=== PATIENT | male | born 1945 | race Caucasian/White ===

== ENCOUNTER 2017-07-17 16:16 | Emergency (ER) | payer MEDICARE ==
[~2017-07-17] VITALS: Ht 175.3 cm; Wt 113.6 kg
[~2017-07-17 16:16] MED LIST: ALBU18HF IH; ALLO300T29 PO; AMLO10TA5 PO; APRES50 PO; CLON0.1T14 PO; COZ100 PO; FURO20TA PO; INSU100I15 SQ; KCL 10 MEQ PO; LOVA40TA PO; METO100T PO; ONDA4TAB48 PO; OXY5 PO; POLY1PAC PO; PROT40T PO; TAM4 PO; TEMA15CA PO; WARF4TAB2 PO
[2017-07-17 16:45] VITALS: BP 133/67; PULSE 59; RESP 16; O2SAT 95
[2017-07-17 18:00] VITALS: BP 150/62; PULSE 56; RESP 18; O2SAT 96
--- NOTE | 2017-07-17 18:06 | ED.REPORT ---
HPI-General Illness Date of Service Jul 17, 2017 ED Provider: Chaka Martinez DO Pt is a 72 year old male well-known to me with a history of HTN, CHF, A. fib, and DM who presents to the ED complaining of intermittent lightheadedness onset around breakfast time today and later at 1300 today. He c/o associated diaphoresis, lower abdominal pain, weakness, neck pain, diarrhea, and vision change. His family reports that the pt was shaking during his episodes. He denies chest pain, SOB, and headache. The pt reports that he has had two episodes of lightheadedness with the first episode resolved within 30 minutes after resting. It started shortly after taking his morning dose of insulin with a blood sugar of 177. He took his blood sugar 30 minutes later after his symptoms had started in his blood sugar was 135. Per pt, his second episode which also occurred after taking his lunchtime insulin lasted longer than the first episode of lightheadedness. He thought that it could be his heart and so he took a nitroglycerin, which she has never tried before and shortly afterwards he experienced a syncopal episode. His blood pressure was reported at 70/35 after taking his nitroglycerin . The pt states that his symptoms are currently resolved. Nursing Notes Stated Complaint: LIGHT HEADED, DIZZY, CHANGE IN VISION, NECK PAIN Chief Complaint: General Complaint Nursing Notes Reviewed: Yes Allergies: Coded Allergies: codeine (Verified Allergy, Unknown, 06/17/15) Scheduled ([kcl 10 meq]) 1 PO every morning take only while taking furosemide Allopurinol-Expunged Drug, Do Not Renew! (Allopurinol-Expunged Drug, Do Not Renew!) 300 Mg Tablet 300 MG PO DAILY AmLODIPine-Expunged Drug, Do Not Renew! (AmLODIPine-Expunged Drug, Do Not Renew! ) 10 Mg Tablet 10 MG PO AM Clonidine-Expunged Drug, Do Not Renew! (Clonidine-Expunged Drug, Do Not Renew!) 0.1 Mg Tablet 0.1 MG PO BID Furosemide-Expunged Drug, Do Not Renew! (Furosemide-Expunged Drug, Do Not Renew! ) 20 Mg Tablet 80 MG PO BID Insulin Npl/Lispro-Expunged Drug, Do Not Sherman (Humalog 40-77-Uvfapkef Drug, Do Not Renew!) 100 Unit/1 Ml Insuln.pen 48 UNIT SQ with breakfast Insulin Npl/Lispro-Expunged Drug, Do Not Sherman (Humalog 72-72-Bzbcicmu Drug, Do Not Renew!) 100 Unit/1 Ml Insuln.pen 48 UNIT SQ with dinner Losartan-Expunged Drug, Do Not Renew! (Losartan-Expunged Drug, Do Not Renew!) 100 Mg Tablet 100 MG PO DAILY Lovastatin-Expunged Drug, Do Not Renew! (Lovastatin-Expunged Drug, Do Not Renew! ) 40 Mg Tablet 40 MG PO HS Metoprolol Tart-Expunged Drug, Do Not Renew! (Metoprolol Tart-Expunged Drug, Do Not Renew!) 100 Mg Tablet 50 MG PO BID Nitrofurantoin Monohyd/M-Cryst (MacroBid) 100 Mg Capsule 100 MG PO BID PEG 3350-Expunged Drug, Do Not Renew! (MIRALAX-Expunged Drug, Do Not Renew!) 17 Gm/Pkt Packet 17 GM PO AM Pantoprazole-Expunged Drug, Do Not Renew! (Protonix-Expunged Drug, Do Not Renew! ) 40 Mg Tablet.dr 40 MG PO 0730 40 MG Tamsulosin-Expunged Drug, Do Not Renew! (Flomax-Expunged Drug, Do Not Renew!) 0.4 Mg Capsule 0.4 MG PO DAILY Warfarin Sodium Inactive Drug Do Not Use (Coumadin Inactive Drug Do Not Use) 4 Mg Tablet 7.5 MG PO PM hyDRALazine-Expunged Drug, Do Not Renew! (hyDRALazine-Expunged Drug, Do Not Renew!) 50 Mg Tab 50 MG PO BID Scheduled PRN Albuterol-Expunged Drug, Do Not Renew! (Albuterol-Expunged Drug, Do Not Renew!) 18 Gm Hfa.aer.ad 60 PUFF IH QIDP PRN PRN Ondansetron (Zofran) 4 Mg Tab.rapdis 4 MG PO PRN Temazepam-Expunged Drug, Do Not Renew! (Temazepam-Expunged Drug, Do Not Renew!) 15 Mg Capsule 15 MG PO HS PRN PRN oxyCODONE-Expunged, Do Not Renew! (oxyCODONE-Expunged, Do Not Renew!) 5 Mg Tablet 5-10 MG PO Q4HP PRN PRN General Time Seen by MD: 18:03 Chief Complaint Other (lightheadedness) Hx Obtained From: Patient, Spouse Arrived By: Walk-in Onset Occurred: 5 - 8 hours ago Symptom Duration: Intermittent Radiation: : Does not radiate Severity: Current: No pain currently Severity: Maximum: Moderate Recent Healthcare: No recent doctor visit, No recent hospitalization Similar Sx Previous: No Past Medical History Past Medical History left eye cataracts heart catheterization arthritis Reports: Diabetes mellitus, Hypertension Reports: Atrial fibrillation Past Surgical History cardiac catheterization Reports: Appendectomy Smoking History Former Smoker Social History Alcohol Use: In recovery Drug Use: Denies drug use Other Social History: Good social support, Ambulatory Status Independent Review of Systems + pelvic pain Full Review of Systems Constitutional: Reports: Weakness - generalized Respiratory: Denies: Shortness of breath Cardiovascular: Denies: Chest pain GI: Reports: Diarrhea Musculoskeletal: Reports: Neck pain Skin: Reports Diaphoresis Neurologic: Reports: Change LOC, Lightheaded, Shaking, Syncope, Vision change, Denies: Headache Complete sys rev & neg: except as marked. Physical Exam Vital Signs Vital Signs Date Time Temp Pulse Resp B/P Pulse Ox O2 Delivery O2 Flow Rate FiO2 07/17/17 21:43 36.7 67 129/62 95 Room Air 07/17/17 19:05 57 147/73 07/17/17 19:03 60 149/70 07/17/17 18:58 55 151/65 07/17/17 18:00 56 18 150/62 96 Room Air 07/17/17 16:45 36.6 59 16 133/67 95 Room Air Initial VS: Reviewed Head / Eyes: Atraumatic, Normocephalic ENT: Mucous membranes moist Neck: Supple, Full range of motion Respiratory: Breath sounds normal, Clear to auscultation, No respiratory distress Abdomen / GI: Soft, Non-tender Extremities: Vascular intact, Neuro intact Skin: Warm, Dry, No cyanosis Neurologic: Alert, Oriented, Nonfocal Psychiatric: Mood/affect normal, Behavior normal General/Constitutional: Awake, Alert Cardiovascular: Regular rhythm, Heart sounds NL, No murmurs Heart Rate / Rhythm: Positive: Bradycardia (with a rate around 50) No lower extremity edema Interpretation & Diagnostics Lab Results Interpretation Result Diagram: 07/17/17191807/17/171918 Test 07/17/17 19:19 07/17/17 19:22 White Blood Count 15.9th/mm3 (3.8-10.1) Red Blood Count 4.89mil/mm3 (4.40-5.80) Hemoglobin 14.8g/dL (13.8-17.2) Hematocrit 44.9% (41.0-50.0) Mean Corpuscular Volume 91.8fL (81-100) Mean Corpuscular Hemoglobin 30.3pg (27.0-35.0) Mean Corpuscular Hemoglobin Concent 33.0% (32.0-37.0) Red Cell Distribution Width 14.3% (12.3-15.4) Platelet Count 276bil/L (150-400) Neutrophils (%) (Auto) 78.6% (40-74) Lymphocytes (%) (Auto) 12.6% (14-46) Monocytes (%) (Auto) 7.8% (4-12) Eosinophils (%) (Auto) 0.4% (0-5) Basophils (%) (Auto) 0.3% (0-3) Sodium Level 142mEq/L (134-144) Potassium Level 4.4mEq/L (3.5-5.2) Chloride Level 103mEq/L (97-108) Carbon Dioxide Level 23mmol/L (18-29) Blood Urea Nitrogen 26mg/dL (8-27) Creatinine 1.44mg/dL (0.76-1.27) Estimat Glomerular Filtration Rate 51mL/min (>59) Glucose Level 142mg/dL (60-99) Calcium Level 9.4mg/dL (8.5-10.1) Magnesium Level 2.2mg/dL (1.6-2.6) Total Bilirubin 0.4mg/dL (0.0-1.2) Aspartate Amino Transf (AST/SGOT) 11U/L (0-50) Alanine Aminotransferase (ALT/SGPT) 27U/L (0-44) Alkaline Phosphatase 78U/L (25-160) Troponin T < 0.010ug/L (0.0-0.011) Pro-B-Type Natriuretic Peptide 100.1pg/mL (0-486) Total Protein 7.1g/dL (6.4-8.4) Albumin 3.9g/dL (3.4-5.0) Hold Estrada Top Tube Received (Received) Urine Color Straw (YELLOW) Urine Appearance Hazy (CLEAR,HAZY) Urine pH 5.0 (5.0-8.0) Urine Specific [place] 1.010 (1.003-1.035) Urine Protein Negativemg/dL (NEG,TRACE) Urine Glucose (UA) Negativemg/dL (NEGATIVE) Urine Ketones Negativemg/dL (NEGATIVE) Urine Occult Blood Negative (NEGATIVE) Urine Nitrite Positive (NEGATIVE) Urine Bilirubin Negative (NEGATIVE) Urine Urobilinogen Normalmg/dL (NORMAL) Urine Leukocyte Esterase Moderate (NEGATIVE) Urine RBC 0-2/hpf (0-2) Urine WBC 6-10/hpf (0-5) Urine Epithelial Cells None/hpf (NONE-MOD) Urine Crystals None seen (NONE SEEN) Urine Bacteria Few/hpf (NONE-FEW) Urine Hyaline Casts None/lpf (NONE) Urine Granular Casts None seen (NONE SEEN) Urine Waxy Casts None seen (NONE SEEN) Urine Red Blood Cell Casts None seen (NONE SEEN) Urine White Blood Cell Casts None seen (NONE SEEN) Urine Mucus None seen (None Seen) Urine Trichomonas None seen (NONE SEEN) Urine Yeast None (NONE SEEN) Urinalysis Comment None Urine Culture Reflexed Indicated ECG Interpretation ECG Interpretation: Sinus rhythm with a rate of 55 Inferior infarct, old No acute ST changes No significant changes compared to 06/17/15 Time: 17:11 Interpreted by: ED physician X-Ray Chest Interpretation Chest Xray Interpretation: IMPRESSION: No acute cardiopulmonary disease. Dictated by: Fred Pedro M.D. on 07/17/2017 at 18:14 View: Portable, 1 view Interpretation / Wet Read by: Interpret - Radiologist Re-Eval/Medical Decision Med Decision/Clinical Course 72-year-old male presenting with lightheadedness precipitated by taking insulin at his usual doses. He was not hypoglycemic when testing his sugars 30 minutes after taking his insulin when the symptoms occurred. He attempted to self diagnose the lightheadedness as being related to his heart and took a nitroglycerin which led to a syncopal episode and a low blood pressure as reported above. During the episodes he experienced neck pain transiently as well as lower abdominal pain, and some nausea and diaphoresis, more so with the second episode. Both of these resolved within a short time frame. On exam today he has no abdominal tenderness, no nuchal rigidity or decreased neck range of motion/tenderness. His lab work looks normal other than showing some pyuria and elevated white blood cell count. Urine culture is pending.. His postural vitals are normal. He is mildly bradycardic, but states he usually runs in the 50s without symptoms. His EKG shows no acute abnormalities and there are no arrhythmias appreciated on telemetry monitoring. At this point I believe that his symptoms could be related to urinary tract infection, and his syncopal episode may be related to the nitroglycerin he took followed by an episode of hypotension. There is some suspicion for hypoglycemic episodes, however given the numbers that he reports it does not appear to be so. I advised that he take the nitrofurantoin for his UTI and follow up with his PCP next week. Patient is agreeable with this. He will return for any new or worsening symptoms. Source of Hx: Old records Time of Eval: 19:27 Re-Evaluation/Progress Note: Pt rechecked. Informed pt on progress. All questions addressed. Time of Eval: 21:07 Re-Evaluation/Progress Note: Pt rechecked. He reports pelvic pain. Informed pt of plan for discharge. Pt understands and agrees with plan for discharge. F/U instructions and RTER warnings given. All questions addressed. Counseled Regarding: Diagnosis, Lab results, Need for follow-up, When/why to return to ED Discharge & Departure Primary Impression: UTI (urinary tract infection) Urinary tract infection type: site unspecified Hematuria presence: without hematuria Qualified Code: N39.0 - Urinary tract infection, site not specified Additional Impressions: Leukocytosis Leukocytosis type: unspecified Qualified Code: D72.829 - Elevated white blood cell count, unspecified Syncope Syncope type: unspecified Qualified Code: R55 - Syncope and collapse Transient hypotension Disposition: Home Discharge Condition All VS Reviewed: Yes Condition: Stable Patient Instructions: Urinary Tract Infection in Men (ED) Additional Instructions: Thank you for entrusting us with your care and for your patience today. Your labs suggest that you have a urinary tract infection. Call your primary care provider on Wednesday for a follow-up appointment next week. Return to the Emergency Department for any new or concerning symptoms. Referrals: Albert Schroeder DO (PCP) Scribe Attestation Portions of this note were transcribed by Caroline Saucedo. I, Dr. Martinez personally performed the history, physical exam and medical decision-making; I reviewed and confirmed the accuracy of the information in the transcribed note. Signed by: Edgardo Ventura, 07/17/17. copies to: Albert Schroeder Gary R DO Jul 17, 2017 18:06 Caroline Hu Jul 17, 2017 18:16
--- NOTE | 2017-07-17 18:17 | DRSVH ---
PROCEDURE: X-RAY CHEST ONE VIEW, PORTABLE ([id number]) INDICATIONS: 72 year-old male with dizziness and visual changes. TECHNIQUE: One view of the chest was acquired. COMPARISON: [facility], CR, XR CHEST 2VW, 10/22/2016, 9:55. [facility], CR , XR CHEST 1VW (PORTABLE), 06/17/2015, 13:32. [facility], CR, CHEST 2VW, 12/27/2014, 12:4 9. FINDINGS: Surgical changes and devices: None. Lungs and pleura: No pleural effusions or pneumothorax. Lungs are clear. Mediastinum: Mediastinal contours appear normal. Heart size is normal. There is aortic atheroscler osis. Bones and chest wall: No suspicious bony lesions. Overlying soft tissues appear unremarkable. IMPRESSION: No acute cardiopulmonary disease. Dictated by: Fred Pedro M.D. on 07/17/2017 at 18:14 Approved by: Fred Pedro M.D. on 07/17/2017 at 18:15
[2017-07-17 18:58] VITALS: BP_SYST 150; BP_SYST 151; BP_DIAS 62; BP_DIAS 65; PULSE 55
[2017-07-17 19:03] VITALS: BP 149/70; PULSE 60
[2017-07-17 19:05] VITALS: BP 147/73; PULSE 57
[2017-07-17 19:26] LABS: BASOPHILS % (AUTO) 0.3 % (0-3); EOSINOPHILS % (AUTO) 0.4 % (0-5); MONOCYTES % (AUTO) 7.8 % (4-12); Mean Corpuscular Hemoglobin 30.3 pg (27.0-35.0); Mean Corpuscular Volume 91.8 fL (81-100); NEUTROPHILS % (AUTO) 78.6 % (40-74); Platelet Count 276 bil/L (150-400)
[2017-07-17 20:03] LABS: Magnesium 2.2 mg/dL (1.6-2.6)
[2017-07-17 20:06] LABS: TROPONIN T < 0.010 ug/L (0.0-0.011)
[2017-07-17 20:06] LABS: APPEARANCE,URINE HAZY (CLEAR,HAZY); COLOR,URINE STRAW (YELLOW)
[2017-07-17 20:07] LABS: OCCULT BLOOD,URINE NEGATIVE (NEGATIVE); UROBILINOGEN,URINE NORMAL (NORMAL)
[2017-07-17] MEDS ORDERED: Nitrofurantoin Monohyd-Macrocryst 100 mg Capsule PO ONE (21:25)
[2017-07-17] MEDS ORDERED: NITR100 PO (21:29)
[2017-07-17 21:43] VITALS: BP 129/62; PULSE 67; O2SAT 95
== END 2017-07-17 21:57 | disposition home or self-care (01) ==
LOC: SED 16:16
DX: N39.0 Urinary tract infection, site not specified (principal); B96.20 Unspecified Escherichia coli [E. coli] as the cause of diseases classified elsewhere; D72.829 Elevated white blood cell count, unspecified; I95.9 Hypotension, unspecified; R55 Syncope and collapse; E11.9 Type 2 diabetes mellitus without complications; I11.0 Hypertensive heart disease with heart failure; I50.9 Heart failure, unspecified; I48.91 Unspecified atrial fibrillation; Z87.891 Personal history of nicotine dependence; Z88.5 Allergy status to narcotic agent